=== PATIENT | male | born 1995 | race Caucasian/White ===

== ENCOUNTER 2025-08-26 01:04 | Emergency (ER) | payer SELFPAY ==
[2025-08-26 01:18] VITALS: BP 159/87; PULSE 85; RESP 16; TEMP 36.6; O2SAT 97; BMI 27.8
--- NOTE | 2025-08-26 01:33 | ED_ITS ---
HPI - Anxiety General Chief Complaint: Anxiety Stated Complaint: SOB, Anxiety Time Seen by Provider: 08/26/25 01:15 Source: patient Mode of arrival: Ambulatory History of Present Illness HPI narrative: 30-year-old male admits to cannabis use, episodically shortly after his cannabis use has foreign body like tightening sensation to the back of his throat. Does not have any hives or itching or shortness of breath, does not have change in voice or stridor, is able to move his neck well. Has no associated swelling of his tongue or lips or face or eyelids. No change in cannabis product, uses the same brand and a mount. Occasionally has coughing, sometimes has coughing fit causing nonbloody emesis. Feels anxious. History of anxiety. Related Data Previous Rx's ?Medication ?Instructions ?Recorded hydroxyzine HCl 25 mg tablet 25 mg PO TID PRN anxiety #30 tabs 08/26/25 Allergies Allergy/AdvReac Type Severity Reaction Status Date / Time No Known Drug Allergies Allergy Verified 08/26/25 01:18 Patient History tobacco type: vaping Exam Narrative Exam Narrative: GENERAL: Well-developed patient, in mild distress. HEAD: Atraumatic. Normocephalic. EYES: Pupils equal round and reactive. Extraocular motions intact. No scleral icterus. No injection or drainage. ENT: Nose without bleeding, purulent drainage. Throat without erythema, tonsillar hypertrophy or exudate. Airway patent. NECK: Trachea midline. Non tender CARDIOVASCULAR: Regular rate and rhythm without murmurs, gallops, or rubs. RESPIRATORY: Clear to auscultation. Breath sounds equal bilaterally. No wheezes, rales, or rhonchi. GASTROINTESTINAL: Abdomen soft, non-tender, nondistended. EXTREMITIES: No edema or joint tenderness. BACK: Nontender without deformity or crepitance. No flank tenderness. NEURO: AOx3. Motor functions grossly nonfocal. SKIN: No rash or erythema of visible areas Initial Vital Signs Initial Vital Signs: Vital Signs Temperature 97.8 F 08/26/25 01:18 Pulse Rate 85 08/26/25 01:18 Respiratory Rate 16 08/26/25 01:18 Blood Pressure 159/87 H 08/26/25 01:18 Pulse Oximetry 97 08/26/25 01:18 Oxygen Delivery Method Room Air 08/26/25 01:18 Course Orders Ordered: Discontinued Medications Hydroxyzine HCl (Hydroxyzine Hcl 25 Mg Tablet) 50 mg PO NOW ONE Stop: 08/26/25 02:23 Last Admin: 08/26/25 02:33 Dose: 50 mg Documented By: MARIS Vital Signs Vital signs: Vital Signs - 8 hr 08/26/25 01:18 Temperature 97.8 F Pulse Rate 85 Respiratory Rate 16 Blood Pressure 159/87 H Pulse Oximetry 97 Oxygen Delivery Method Room Air MDM - Anxiety MDM Narrative Medical decision making narrative: History of anxiety, cannabis use, episodically after cannabis product use has foreign body tightening like sensation to the back of his throat but not with each episode. No obvious allergic reaction like symptoms. No distress. He does feel like he has a history of anxiety and has been feeling anxious. Trial of hydroxyzine antihistamine that might be efficacious for his anxiety, may also provide some relief if there is any allergic component to his cannabis product exposures. Advised to stop cannabis. Hydroxyzine trial, oral dose, and presc ription sent to his requested pharmacy. Recheck symptoms early next week on above regimen. Home with significant other. Return precautions discussed. Discharge Plan Departure Patient Disposition: Home Clinical Impression: Anxiety, Throat irritation Instructions: DI for Gastroesophageal Reflux Disease (GERD), DI for Anxiety -- Adult Activity Restrictions/Additional Instructions: History of anxiety, no current pharmacotherapy. History of cannabis use. Occasional recent episodes of cannabis use and subsequent throat tightening like sensation. No hives or itching or swelling of the lips or wheezing or obvious overt allergic reaction other symptoms. No similar episodes outside of cannabis use however. Consider cannabis induced anxiety, or exacerbation of anxiety, with manifestation of throat tightening like sensation. Consider localized allergic reaction with throat tightening after cannabis use. Consider gastroesophageal stomach acid reflux in association with cannabis use. For now consider trial of antihistamine hydroxyzine, dose given in the emergency department, prescription sent to your requested pharmacy for trial outpatient. Consider efew-clr-hbudidj antacid such as Pepcid/famotidine, or omeprazole/Prilosec. Consider stopping cannabis use. Recheck symptoms next week with your regular provider. Return to this/nearest emergency department for any change worsening symptoms or any concerns prior. Prescriptions: New hydroxyzine HCl 25 mg tablet 25 mg PO TID PRN (Reason: anxiety) Qty: 30 0RF Stand Alone Forms: Patient Portal/API
== END 2025-08-26 02:47 | disposition home or self-care (01) ==
PROVIDERS: Emergency Provider Emergency Medicine
DX: F41.9 Anxiety disorder, unspecified (principal); R07.0 Pain in throat; F12.90 Cannabis use, unspecified, uncomplicated
CPT/HCPCS: 99283; A9270